=== PATIENT | female | born 1960 | race Caucasian/White ===

== ENCOUNTER 2023-08-25 08:46 | Day surgery (SDC) | payer OTHER, SELFPAY ==
[2023-08-25] VITALS (11 sets, daily range): BP systolic 72–134; BP diastolic 40–81; PULSE 68–84; RESP 12–16; TEMP 35.7–36.5; O2SAT 96–99; BMI 29.9
--- NOTE | 2023-08-25 | PATH_ITS ---
[facility] Accession Number: [id number] No. of containers..01 Tissue . 01 Material submitted: . uterus - UTERUS AND BILATERAL FALLOPIAN TUBES AND OVARIES . 01 Diagnosis: UTERUS, BILATERAL FALLOPIAN TUBES AND OVARIES, LAPAROSCOPIC ASSISTED VAGINAL HYSTERECTOMY WITH BILATERAL SALPINGGO-OOPHORECTOMY (WEIGHT 73 GRAMS): Cervix with no significant histomorphologic abnormality. Endocervix with no significant histomorphologic abnormality. Basalis endometrium with cystic atrophy; negative for glandular hyperplasia, cytologic atypia, or malignancy. Myometrium with a partially cellular, hyalinized, and calcified leiomyoma (32 mm in greatest dimension); negative for significant atypia. Uterine serosa with no significant histomorphologic abnormality. Left fallopian tube with no significant histomorphologic abnormality. Right fallopian tube with a benign paratubal cyst (4 mm in greatest dimension). 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 [facility] 09/01/2023 1335 Local . 01 Comment: As part of routine quality control, parts of this case were also reviewed by Dr. Josefina Bangura, who agrees with the interpretation. . 01 Electronically signed: . Adriana Long MD, Pathologist NPI- [id number] . 01 Gross description: . Received in formalin with two identifiers and uterus, bilateral fallopian tubes and ovaries, is an intact uterus (73 grams, 9.3 cm from superior to inferior, 5.4 cm from medial to lateral, 4.7 cm from anterior to posterior), with attached cervix (2.4 x 2.5 cm), left fallopian tube (2.4 x 0.4 cm), left ovary (3 grams, 3.3 x 1.5 x 1.1 cm), right fallopian tube (5.0 x 0.6 cm), right ovary (3 grams, 3.0 x 1.4 x 1.2 cm). . The ectocervix is schmitt and wrinkled with a slit-like os measuring 0.5 cm in diameter. The anterior paracervical margin is inked blue while the posterior paracervical margin is inked black. . The serosa is schmitt and smooth with no hemorrhage or adhesion identified. . The endocervical canal has schmitt herringbone mucosa and measures 2.4 cm in length. The endometrial cavity measures 2.5 cm from cornu to cornu, and 5.1 cm in length with pink-schmitt velvety endometrium that averages less than 0.1 cm thick. The myometrium is schmitt and trabecular measuring up to 2.2 cm in maximum thickness with a well-circumscribed white whorled nodule measuring 3.2 cm in greatest dimension with hard gritty areas consistent with calcification and no hemorrhage identified. . The left tube has schmitt, smooth serosa with no cysts identified. Sectioning reveals a lumen that is stellate and discontinuous possibly consistent with previous tubal ligation. The ovary has a schmitt, cerebriform external surface. Sectioning reveals a pale schmitt rubbery nodule measuring 0.7 cm in greatest dimension. No additional lesions are identified. . The right fallopian tube has schmitt, smooth serosa with a cystic structure measuring 0.4 cm in greatest dimension filled with schmitt serous fluid. Sectioning reveals a discontinuous stellate lumen possibly consistent with tubal ligation. . The right ovary has a schmitt, cerebrifrom external surface, and sectioning reveals an unremarkable cut surface with no lesions identified. . Supply Requirements Officer sections are submitted as follows: A1: Anterior cervix. A2: Posterior cervix. A3: Anterior full thickness section. A4: Posterior full thickness section. A5: Serosa. A6: Nodule with presumed calcification following decalcification. A7: Left fallopian tube to include one-half of bisected fimbriae and cross-sections. A8: Left ovary. A9: Right fallopian tube to include one-half of bisected fimbriae and cross-sections. A10: Right ovary. ([id number]) A11-15: Additional sections of decalcified nodule. . Additional sections of non-calcified nodule are submitted in cassettes A11-A15. ([id number]) /ALEX 09/01/2023 1335 Local . 01 Pathologist provided ICD-10: D25.9, N81.4, N81.10, N81.6 . 01 CPT . 165713 Specimen Comment: A courtesy copy of this report has been sent to [phone] Performed at: 01 [facility] [address] [place] [address], [place], [place] [id number] MD Tru Lantigua MD Phone: [phone]
[2023-08-25] MEDS: LACTATED RINGERS 1,000 ML 21 ML IV ×2 (09:20→11:52)
--- NOTE | 2023-08-25 09:37 | PM.PREOP ---
Pre-operative Note Interval Note History & Physical reviewed/Exam performed by Physician: Yes Changes to H&P: No H&P completed within 30 days and has changed as indicated here:: 08/20/23
[2023-08-25] MEDS: SCOPOLAMINE 1 PATCH TOP (09:54)
[2023-08-25] MEDS: ACETAMINOPHEN 325 MG TABLET 975 MG PO (09:55)
[2023-08-25] MEDS: CEFAZOLIN 2 GM/100 ML PREMIX 100 ML IV (10:13)
[2023-08-25] MEDS: BUPIVACAINE 0.5% (PF) 60 ML, EPINEPHrine 0.3 MG INJ (10:57)
--- NOTE | 2023-08-25 10:59 | SUR.OPER ---
Lithotomy on padded OR bed. [employer] Pad Positioner under torso. Head on pillow, arms padded and tucked at sides. Legs secured in padded yellow fins stirrups.
--- NOTE | 2023-08-25 12:21 | P.OP_ITS ---
Operative Date/Time/Diagnoses Date of procedure: 08/25/23 Time of procedure: 12:22 Pre-op diagnosis: Uterine prolapse, cystocele and rectocele Post-op diagnosis: same Procedure & Clinicians Procedure: Procedures Operation Date: 08/25/23 10:15 Actual Procedure Side Surgeon p Laparoscopic Assisted Vaginal Hysterectomy with bilateral salpingo- oophorectomy MD salomon Mobley Anterior/Posterior Repair, perineorrhaphy Not Applicable Susana Sanabria MD Indications: 62-year-old with symptomatic uterine prolapse, cystocele, and rectocele. Surgeon: Susana Sanabria Business Intelligence Analyst: Alexus Pringle Anesthesia Type: General and Local Operative Notes Findings: 6 week size uterus with a posterior lower uterine segment fibroid measuring 6 cm Normal tubes and ovary Normal appendix Normal liver and gallbladder Closure Type: primary Specimen(s): left tube & ovary, right tube & ovary and uterus Applied: catheter (To continuous drainage) and other (Betadine moistened vaginal pack) Estimated blood loss (mL): 50 Blood products transfused: none Procedure in detail: The patient was taken to the operating room where she was placed in the dorsal supine position. After adequate general endotracheal anesthesia was achieved, she was placed in the dorsal lithotomy position, and prepped and draped in the usual sterile fashion. A bivalve speculum was placed into the vagina, and a single-tooth tenaculum was placed on the anterior lip of the cervix. The cervical os was sequentially dilated until the ZUMI uterine manipulator could pass easily into the endometrial cavity. The single-tooth tenaculum was removed from the anterior lip of the cervix, and the bivalve speculum was removed from the vagina. Attention was then turned to the abdomen where 6 mL of half percent Marcaine with epinephrine were injected in the umbilical fold. A 5 mm incision was made. The Verees needle was placed into the peritoneal cavity, and its placement confirmed by aspiration and drop test. The abdominal cavity was insufflated with 3.6 L of CO2. The Verees needle was removed, and a 5 mm trocar was placed without difficulty. Initial inspection of the pelvis revealed the findings noted above. 2 other incisions were made 4 cm lateral to the midline at the level of the umbilicus.. These were 5 mm incisions. Two 5 mm trocars were placed under direct visualization. The right tube and ovary were grasped with an atraumatic grasper. The infundibulopelvic ligament on the right side was cauterized and cut with the power seal. The round ligament and broad ligament were cauterized and cut. This was continued to the level of the uterine arteries. This was repeated on the patient's left side. The instruments were removed from the abdomen. Attention was then turned to the vagina where the ZUMI uterine manipulator was removed from the uterus. The cervix was grasped with a 4 tooth tenaculum. 10 mL of quarter percent Marcaine with epinephrine were injected circumferentially around the cervix. The cervix was circumscribed. The bladder and rectum were dissected off the lower uterine segment and cervix with an open moistened Ray-Naomie. The peritoneum was entered sharply with the Metzenbaum scissors anteriorly and a Hayde placed. The peritoneum was entered posteriorly with the Metzenbaum scissors and the long weighted speculum was placed into the posterior cul-de-sac. The uterosacral cardinal ligament complexes were clamped, transected, and suture ligated with 0 Vicryl. These were attached to hemostat. The uterine arteries were clamped, transected, and suture ligated with 0 Vicryl. The uterus was handed off for specimen with the tubes and ovaries. The vaginal cuff was closed with 0 Vicryl with a series of simple interrupted sutures. The tagged sutures were cut. 2 Allis clamps were placed at the apex of the cystocele. 6 mL of half percent Marcaine with epinephrine were injected and an incision was made with a #10 blade between the 2 Allis clamps. Wide Allis clamps were placed on the midline of the cystocele approximately 5. The mucosa was undermined using the Metzenbaum scissors and the mucosa incised in the midline moving the wide Allis clamps to the edges of the mucosa. The mucosa was dissected off the underlying fascia using an open moistened Ray-Naomie and a #10 blade. The fascia was reapproximated with 0 Vicryl with a series of horizontal mattress sutures. The excess vaginal mucosa was excised. The mucosa was closed using simple interrupted sutures with 2-0 Vicryl including the underlying fascia to close the space. The weighted speculum was removed from the vagina. Allis clamps were placed at the mucocutaneous junction at the introitus. 6 mL of half percent Marcaine with epinephrine were injected. An incision was made with a #10 blade between the 2 Allis clamps, and a triangular piece of skin and underlying subcutaneous tissue was removed. Allis clamps were placed in the midline of the rectocele. 10 mL of half percent Marcaine with epinephrine were injected submucosally. The mucosa was undermined using the Metzenbaum scissors and the mucosa incised in the midline, moving the wide Allis clamps to the mucosal edges. The underlying fascia was dissected off of th mucosa using an open moistened Ray-Naomie and a #10 blade. The fascia was reapproximated using 0 Vicryl with a series of horizontal mattress sutures. The excess vaginal mucosa was excised. The mucosa was closed using a series of simple interrupted sutures with 2-0 Vicryl including the underlying fascia to close the space. On the perineum 0 Vicryl was used to reapproximate the levator muscle. The subcutaneous layer was closed with 2-0 Vicryl. The skin was closed with 3-0 chromic with simple interrupted sutures. Hemostasis was achieved. A Betadine moistened vaginal pack was placed into the vagina. A rectal exam was done and there were no sutures palpable in the rectum. The urine was clear. Sponge, lap, and instrument counts were correct x-2. The patient tolerated the procedure well, was taken to PACU in stable condition. Complications: none Post-operative Condition: stable Disposition: PACU Plan for aftercare: Home after recovery
[2023-08-25] MEDS: LACTATED RINGERS 1,000 ML 100 ML IV (17:40)
[2023-08-25] MEDS: ACETAMINOPHEN 325 MG TABLET 650 MG PO ×2 (17:41→23:59)
[2023-08-25] MEDS: KETOROLAC 30 MG/ML VIAL 15 MG IV (20:25)
[2023-08-25] MEDS: DOCUSATE 100 MG CAPSULE 200 MG PO (20:26)
[2023-08-25] MEDS: PRAMIPEXOLE 0.25 MG TABLET 0.5 MG PO (20:45)
[2023-08-25] MEDS: TRAMADOL 50 MG TABLET PO (21:51)
[2023-08-26 00:30] VITALS: BP 127/68; PULSE 72; RESP 16; TEMP 36.6; O2SAT 97
[2023-08-26] MEDS: KETOROLAC 30 MG/ML VIAL 15 MG IV ×2 (02:50→08:12)
[2023-08-26 04:38] VITALS: BP 124/64; PULSE 62; RESP 16; TEMP 36.7; O2SAT 97
[2023-08-26] MEDS: ACETAMINOPHEN 325 MG TABLET 650 MG PO (05:51)
[2023-08-26 05:55] LABS: Add Manual Diff / Slide Review NO; Basophils Absolute Auto 100 /uL (0-100); Basophils Percent Auto 0.6 % (0-2); Eosinophils Absolute Auto 0 /uL (0-450); Hematocrit 34.4 % (36-46); Hemoglobin 11.6 g/dL (12.0-16.0); Lymphocytes Absolute Auto 1800 /uL (1100-4500); Lymphocytes Percent Auto 14.2 % (25-40); Mean Corpuscular HGB Conc 33.8 % (30-36); Mean Corpuscular Volume 94.7 fL (80-100); Monocytes Absolute Auto 800 /uL (0-900); Monocytes Percent Auto 6.5 % (3-14); Neutrophils Absolute Auto 10200 /uL (1500-7000); Neutrophils Percent Auto 78.7 % (50-75); Platelet Count 156 X10^3/uL (150-400); Red Blood Cell Count 3.63 X10^6/uL (4.0-5.2); Red Cell Distribution Width 13.2 % (11.6-14.8)
--- NOTE | 2023-08-26 06:02 | PC.NURSE ---
operations supervisor 2nd shift: Charles & vaginal packing removed @ 0600. Small amount of serosanguinous drainage noted. Pain managed effectively with scheduled post-op medications. IV saline locked. Tolerating PO intake well. Denies N/V. Ambulating w/ SBA. Plan of care ongoing.
[2023-08-26 08:00] VITALS: BP 121/74; PULSE 70; RESP 16; TEMP 36.5; O2SAT 97
[2023-08-26] MEDS: GABAPENTIN 100 MG CAPSULE PO (08:08)
[2023-08-26] MEDS: DOCUSATE 100 MG CAPSULE 200 MG PO (08:08)
--- NOTE | 2023-08-26 08:44 | CM.DANOTE ---
Brief DCP Assessment Note Pt is a [address]yo [address] Sanabria here following lap vaginal hysterectomy on 08.25.23. PCP Radha Marinelli Payer Luli urbina and self pay FOOD SCIENCE TECHNICIAN reviewed EMR. Per Daniele notes, anticipate dc home with family today. Pt is a woman from [place]. Spouse Crow ([phone]) is emergency contact. Per RN report, indep at baseline. No ambulation concerns. Pt will dc home once voids independently. RN anticipates no CM needs. No obvious CM needs from chart review/RN report. Anticipate dc home today with family support and OP f/u. No identified barriers to dc home. CM team will follow as needed. ADELFO Gr Discharge Planning/Care Management CM Discharge Assessment Start: 08/26/23 08:42 Freq: Status: Active Protocol: Document 08/26/23 08:43 SL (Rec: 08/26/23 08:44 SL [id number]) Discharge Planning Assessment Assigned Shade Classifier ADELFO Sheppard DPOA/Assigned Designee Name corey Maria Contact Information [phone] Advance Directives? Yes Advance Directives on File No History Provided By Patient Prior Living Arrangements House Household Members spouse Type of transporation used prior to Drives own vehicle admit Independent with ADL's Yes Is patient alert and oriented? Yes Barriers to Discharge No Comment pt can dc home once void indep Discharge Plan Home Transportation Arrangement family Referrals Initiated None needed Whiteboard Updated in Patient Room with No name and ext. # of Shade Classifier Review Status In Process Please Provide Date Initial DC 08/26/23 Assessment Was Performed Next Review Type Continued Stay Review
--- NOTE | 2023-08-26 09:38 | PC.NURSE ---
Patient voided 250 of urine without difficulty, she reports feeling like she was able to empty her bladder. PVR bladder scan shows less than 20cc. Reported to Dr. Sanabria. Patient ready for discharge to home today, waiting for her .
--- NOTE | 2023-08-27 22:24 | PM.DS.1 ---
History of Present Illness History of Present Illness Date Patient Seen: 08/22/23 Time Patient Seen: 12:00 Chief complaint: LAVH w/ethel salpingectomy & ant/pos repair *OPB* Narrative: Patient is a 62-year-old who underwent an LAVH/bilateral salpingectomy/anterior and posterior repair She is postop day #1 Discharge Providers Provider Discharge Date: 08/22/23 Primary care physician: Radha Marinelli DO Discharge provider: Susana Sanabria MD Summary Hospital Course Discharge Diagnosis: Uterine prolapse Cystocele and rectocele Status post LAVH/BSO/anterior and posterior repair Hospital Course: Patient is a 62-year-old who presented on August 21, 2023 for a scheduled LAVH/BSO/anterior and posterior repair. She underwent this procedure without complication. On postop day # 1, the vaginal packing and Charles catheter were removed. She voided 200 cc with a less than 20 cc residual. She was tolerating a diet. No nausea or vomiting. Pain was well controlled. Minimal vaginal bleeding. She was discharged home on postop day #1. Status at Discharge Cognitive/behavioral status at discharge: oriented Functional status at discharge: independent ambulation Overall status at discharge: patient is progressing back to baseline Time Spent with Patient Time spent: Less than 30 minutes Exam Vital Signs (past 8 hours): Oxygen Delivery Method Room Air Oxygen Flow Rate 0 Narrative Exam Narrative: Generally: Patient is sitting up in a chair, no acute distress Lungs: Clear to auscultation bilaterally Cardiovascular: Regular rate and rhythm Abdomen: Soft and flat. Incisions: Clean dry and intact with Allevyn dressings. Extremities: Negative Homans, no edema Objective Labs 08/26/23 05:47 PFSH Social History household members: spouse Smoking Status: Never smoker alcohol intake: current Discharge Assessment & Plan Assessment and Plan Assessment: Postop day # 1 status post LAVH/BSO/anterior and posterior repair Patient voiding without high residuals Plan of Treatment: Discharge to home Follow-up in 2 weeks Discharge Plan Discharge Plan Patient Disposition: Home Provider Discharge Comment: Call with fever, chills, redness or drainage around incisions or bleeding vaginally more than spotting to light Ibuprofen 600mg every 6 hours as needed Tylenol 650 mg every 6 hours as needed Stool softners Discharge orders & Medications Discharge Orders: Discharge (Order); Ordered 08/26/23 Ordered By: Susana Sanabria Prescriptions: New tramadol 50 mg tablet 50 mg PO Q6H PRN (Reason: pain) Qty: 14 0RF Continued pramipexole 0.125 mg tablet 0.5 mg PO BEDTIME Rx Instructions: take 2 tablets = 0.5 mg gabapentin 100 mg capsule 100 mg PO DAILY Discontinued conjugated estrogens 0.625 mg/gram cream 0.625 mg vaginal DAILY Qty: 30 1RF Rx Instructions: 1gm vaginally every night x 2 weeks, then twice weekly prior to surgery. Follow up/Referrals: Susana Sanabria MD [Physician] - As previously scheduled (Post op appointments already made) Diet/Activity/Treatments Diet: Regular Activity: No heavy lifting, nothing more than a gallon of milk Skin/Wound/Dressing Care Report to your healthcare provider any signs of infection, such as:: chills, fever, increased pain, unusual drainage and unusual redness Dressing: Remove outer pink dressings with attached white guaze on after morning shower May shower daily Visit Report/Discharge Packet Instructions: DI for Cystocele and Rectocele Repair, DI for Hysterectomy, DI for Laparoscopy, DI for Prescription Opioid Use Stand Alone Forms: Patient Portal/API, Surgery Discharge Discharge Data Primary Care Provider: Radha Marinelli Attending Provider: Susana Sanabria Quality VTE Deep Vein Thrombosis/Pulmonary Embolism Present on Admission: No
== END 2023-08-26 10:55 | disposition home or self-care (01) ==
LOC: OR 08:48 → AC 08:49
PROVIDERS: PCP Family Medicine; Referring Provider Obstetrics & Gynecology; Visit Provider Obstetrics & Gynecology
PROC: 0UT9FZZ Resection of Uterus, Via Natural or Artificial Opening With Percutaneous Endoscopic Assistance (ICD-10-PCS; CPT 58552; principal; 2023-08-25 10:15)
PROC: (CPT 58552; 2023-08-25 10:15)
DX: N81.2 Incomplete uterovaginal prolapse (principal)
CPT/HCPCS: 58552; 57260; 36415; 85025; J0171; J0690; J1100; J1170; J1885; J2250; J2405; J2704; J3010